=== PATIENT | male | born 1965 | race Caucasian/White ===

== ENCOUNTER 2017-02-15 15:26 | Emergency (ER) | payer MEDICARE, OTHER ==
[~2017-02-15] VITALS: Ht 180.3 cm; Wt 108.4 kg
[~2017-02-15 15:26] MED LIST: AMITRIPTYLINE100 MG PO; CARBAMAZEPINE300 MG PO; CITALOPRAM HBR40 MG PO; CYANOCOBAL1000 MCG/M IM; D3 DOTS2000 UNIT PO; DURAGESIC1 EAC1 TD; EVZIO0.4 MG/0.4 IJ; FENTANYL1 EAC5 TD; FISH OIL 1,0001 EAC2 PO; FISH OIL300 MG PO; FLOVENT DISKUS50 MCG INH; FOLBIC RF TABL1 EACH PO; FOLIC ACID0.4 MG PO; GABAPENTIN300 MG PO; LAMOTRIGINE100 MG PO; MAGNESIUM400 M1 PO; MORPHINE SULFAT30 M1 PO; NAPROXEN250 MG PO; NEURONTIN300 MG PO; POTASSIUM99 M1 PO; PRENATAL CAPLE1 EACH PO
[2017-02-15] MEDS ORDERED: MS CONTIN30 MG PO (15:37)
[2017-02-15] MEDS ORDERED: MORPHINE SULFAT15 MG PO (15:39)
[2017-02-15] MEDS ORDERED: TERBINAFINE HC250 MG PO (15:42)
[2017-02-15] MEDS ORDERED: CARBIDOPA-LEVO1 EACH PO (15:42)
== END 2017-02-15 16:05 | disposition home or self-care (01) ==
LOC: ED 15:26
DX: S83.91XA Sprain of unspecified site of right knee, initial encounter (principal); Z98.890 Other specified postprocedural states; Z98.818 Other dental procedure status; Z90.49 Acquired absence of other specified parts of digestive tract; Z88.0 Allergy status to penicillin; Z91.018 Allergy to other foods; Z79.899 Other long term (current) drug therapy; X58.XXXA Exposure to other specified factors, initial encounter
CPT/HCPCS: 99282